=== PATIENT | male | born 1940 ===

== ENCOUNTER 2016-08-14 08:11 | Emergency (ER) | payer MEDICARE, OTHER ==
[2016-08-14 08:17] VITALS: O2SAT 98
--- NOTE | 2016-08-14 09:09 | C.PDOC ---
History Of Present Illness Patient is a 75 y/o male that presents to the ED for evaluation of nasal congestion, ear discomfort, and post-nasal drip symptoms for the last 2 months. Pt reports decreased hearing sense from his left ear, and feels his ears are clogged. Pt reports being seen by PMD with similar complaints, and was prescribed several unknown medications with no relief. Otherwise, denies any chest pain, shortness of breath, fever, chills, or any other associated symptoms at this time. Time Seen by Provider: 08/14/16 08:41 Chief Complaint (Nursing): ENT Problem History Per: Patient History/Exam Limitations: None Onset/Duration Of Symptoms: Days (2 months) Current Symptoms Are (Timing): Still Present Quality (Ear): denies: Pain W/Touch, Redness, Swelling, Discharge, Foreign Body Past Medical History Reviewed: Historical Data, Nursing Documentation, Vital Signs Vital Signs: Last Vital Signs Temp 97.9 F 08/14/16 09:29 Pulse 68 08/14/16 09:29 Resp 20 08/14/16 09:29 BP 175/83 H 08/14/16 09:29 Pulse Ox 98 08/14/16 09:52 - Medical History PMH: HTN Family History: States: No Known Family Hx - Social History Hx Alcohol Use: No Hx Substance Use: No - Immunization History Hx Tetanus Toxoid Vaccination: No Hx Influenza Vaccination: No Hx Pneumococcal Vaccination: No Review Of Systems Except As Marked, All Systems Reviewed And Found Negative. Constitutional: Negative for: Fever, Chills ENT: Positive for: Ear Pain (discomfort, decreased hearing from left ear), Nose Congestion, Throat Pain. Negative for: Ear Discharge Cardiovascular: Negative for: Chest Pain, Palpitations, Light Headedness Respiratory: Positive for: Cough. Negative for: Shortness of Breath Gastrointestinal: Negative for: Nausea, Vomiting, Abdominal Pain Physical Exam - Physical Exam Appears: Non-toxic, No Acute Distress Skin: Normal Color, Warm, Dry Head: Atraumatic, Normacephalic Eye(s): bilateral: Normal Inspection, EOMI Ear(s): Bilateral: Normal Nose: Normal Oral Mucosa: Moist Throat: Normal, No Erythema, No Exudate, No Drooling Neck: Normal ROM, Supple Chest: Symmetrical, No Tenderness Cardiovascular: Murmur (2/6 systolic murmur) Respiratory: Normal Breath Sounds, No Rales, No Rhonchi, No Wheezing Extremity: Normal ROM Neurological/Psych: Oriented x3, Normal Speech, Normal Cognition ED Course And Treatment O2 Sat by Pulse Oximetry: 98 (on RA) Pulse Ox Interpretation: Normal Disposition - Disposition Referrals: Juan Garcia MD [Staff Provider] - [facility] [Outside] Disposition: HOME/ ROUTINE Disposition Time: 09:07 Condition: GOOD Additional Instructions: Call for an apt with dr Garcia Take all usual meds Prescriptions: Cetirizine HCl [Zyrtec] 1 cap PO DAILY #30 capsule Methylprednisolone [Medrol Dose Pack (21 tabs)] 1 kit PO . DIRECTED #21 packet Instructions: Allergic Rhinitis (ED) Print Language: PERUVIAN - Clinical Impression Clinical Impression: Seasonal allergies - Scribe Statement The provider has reviewed the documentation as recorded by the Scribe Yamilex Choe All medical record entries made by the Scribe were at my direction and personally dictated by me. I have reviewed the chart and agree that the record accurately reflects my personal performance of the history, physical exam, medical decision making, and the department course for this patient. I have also personally directed, reviewed, and agree with the discharge instructions and disposition.
[2016-08-14 09:32] VITALS: BP 175/83; PULSE 68; RESP 20; TEMP 97.9
== END 2016-08-14 09:30 | disposition home or self-care (01) ==
LOC: C.ER 08:11
DX: J30.2 Other seasonal allergic rhinitis (principal)

== ENCOUNTER 2018-01-04 12:34 | Emergency (ER) | payer MEDICARE, OTHER ==
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
[2018-01-04] MEDS ORDERED: Oxycodone/Acetaminophen 5/325 mg Tab PO STA (14:13)
[2018-01-04] MEDS ORDERED: Oxycodone/Acetaminophen 5/325 mg Tab ONE (14:16)
[2018-01-04 16:17] VITALS: BP 145/74; PULSE 54; RESP 16; TEMP 97.5
--- NOTE | 2018-01-04 16:37 | RAD ---
PROCEDURE: Radiographs of the pelvis and bilateral hips HISTORY: fall COMPARISON: None. FINDINGS: BONES: Pelvis: Unremarkable. Right hip:Unremarkable. Left hip:Unremarkable. JOINTS: Right hip: Joint space narrowing. Left hip: Joint space narrowing. Sacroiliac Joints: Narrowed and sclerotic. Pubic symphysis: Narrowed and sclerotic. SOFT TISSUES: Normal. OTHER FINDINGS: None. IMPRESSION: No demonstrated fracture or dislocation. Bilateral hip degenerative changes.
--- NOTE | 2018-01-04 16:38 | RAD ---
Date of service: 01/04/2018 PROCEDURE: Right Knee Radiographs. HISTORY: knee pain COMPARISON: None. FINDINGS: BONES: No acute fracture. JOINTS: Mild tricompartmental narrowing, worst in the medial tibial femoral compartment. JOINT EFFUSION: None. OTHER FINDINGS: Quadriceps tendon enthesophyte. IMPRESSION: No demonstrated fracture or dislocation. Mild degenerative changes..
[2018-01-04 16:42] VITALS: O2SAT 98
== END 2018-01-04 16:29 | disposition home or self-care (01) ==
LOC: C.ER 12:34
DX: G89.29 Other chronic pain (principal); M54.5 Low back pain; M25.561 Pain in right knee; I10 Essential (primary) hypertension
CPT/HCPCS: 73521; 73562; 96372; 99285; J1885

== ENCOUNTER 2018-02-15 06:08 | Day surgery (SDC) | payer MEDICARE, OTHER ==
[2018-02-08 12:26] VITALS: BMI 28.1
[2018-02-15] MEDS ORDERED: EPINEPHrine 1:1000 Nasal Sol(30mL) ONE (07:01)
[2018-02-15] MEDS ORDERED: Lidocaine/Epinephrine 1% 1:100000 10 ML IJ ONE (07:01)
[2018-02-15] MEDS ORDERED: ceFAZolin IV 1 gm in Dextrose 2 GM/100 ML BAG IVPB ONE (07:01)
[2018-02-15] MEDS ORDERED: Propofol 10 mg/ml Inj (20 ML) ONE (07:22)
[2018-02-15] MEDS ORDERED: Succinylcholine Chloride 20 mg/ml Syr (5 ml) IV ONE (07:23)
[2018-02-15] MEDS ORDERED: Phenylephrine 10 mg/ml Inj ONE (07:23)
[2018-02-15] MEDS ORDERED: Lidocaine 4% (Laryng-O-Jet) Kit MM ONE (08:03)
[2018-02-15] MEDS ORDERED: ePHEDrine 50 mg/ml Inj ONE (08:05)
[2018-02-15] MEDS ORDERED: Rocuronium 10 mg/ml (5 ml) ONE (08:06)
[2018-02-15] MEDS ORDERED: Esmolol 100 mg/10ml Inj IV ONE (08:33)
[2018-02-15] MEDS ORDERED: Neostigmine Methylsulfate 3mg/3ml Syringe IV ONE (08:41)
[2018-02-15] MEDS ORDERED: Naloxone 0.4 mg/ml Inj (Adult) ONE (09:18)
[2018-02-15] MEDS ORDERED: Acetaminophen-Codeine 300/30 mg Tab PO PRN (09:18)
[2018-02-15] MEDS ORDERED: Dextrose 5%/0.45% NS 1,000 ML IV SCH (09:30)
[2018-02-15 12:12] VITALS: O2SAT 97
[2018-02-15 12:21] VITALS: BP 135/63; PULSE 68; RESP 18; TEMP 97.5
--- NOTE | 2018-02-15 13:24 | OP ---
PROCEDURE DATE: 02/15/2018 PREOPERATIVE DIAGNOSIS: Sinusitis, large turbinates, deviated septum, right chronic otitis media. POSTOPERATIVE DIAGNOSIS Sinusitis, large turbinates, deviated septum, right chronic otitis media. PROCEDURE: Endoscopic bilateral ethmoidectomy, endoscopic bilateral maxillary antrostomy, endoscopic left sphenoidotomy, endoscopic bilateral inferior turbinate reduction, right myringotomy with tubes. FINDINGS: Left sphenoid antrum stenosed, bilateral maxillary antrum stenosed, sinusitis changes noted in the ethmoid sinuses. The sphenoid antrum stenosed. Deviated septum, large inferior turbinates. Fluid noted behind the right TM. PROCEDURE: The patient was brought into room, placed in supine position. Anesthesia initiated through an ET tube. The patient was draped in usual manner. The right ear was brought to view using operative microscope and ear speculum. Radial incision was made in the anterior-inferior quadrant of the right eardrum. Fluid was noted behind the TM and suctioned out. Tube was placed. Floxin was placed. Next, adrenaline-soaked pledgets were inserted into nasal cavity, remained there for 5 minutes and removed. The septum was injected with lidocaine with epinephrine after the patient was draped in usual manner. A Migel incision was made on the left and mucoperichondrial flap was raised. A vertical incision was made in the cartilage leaving the 0.5 cm anterior superior strut and a mucoperichondrial flap was raised on the other side. Deviated portion of the bone and cartilage were removed using chisel and forceps. Quilting suture was used to suture the two flaps together and close the Repton incision. A zero-degree scope was inserted into the nasal cavity. The inferior turbinates was noted to be enlarged and reduced in size using scissors going from inferior to superior, anterior posterior direction on both sides, first on the left then on the right. Next suction cautery was used to control bleeding on both sides. Navigation was set up and used in order to ensure that the skull base and orbit were not entered. The middle turbinate was injected on both sides with lidocaine with epinephrine. Attention was turned to left and the turbinate was medialized. The uncinate process was medialized and removed. The ethmoid bulla was entered using a debrider inferomedially going posteriorly to the basal lamella anterior and superiorly until the ethmoid bulla was removed. The basal lamella was entered. Posterior ethmoid cells were entered and opened. The skull base was identified and followed anteriorly all the way to the area of anterior ethmoid air cells. Curved suction hooked up to navigation was used to locate the maxillary antrum which was noted to be stenosed and opened using forceps. Next, the sphenoid antrum was located and opened using forceps. Bleeding was controlled using suction cautery and adrenaline-soaked pledgets. Attention was turned to the other side. The middle turbinate was medialized. The uncinate process was medialized and removed. The ethmoid bulla was entered inferomedially going posteriorly to the basal lamella anterior and superiorly until the ethmoid bulla was removed. The basal lamella was entered. Posterior ethmoid cells were entered and opened. The skull base was identified and followed anteriorly all the way to the area of the anterior ethmoid air cells. Curved suction hooked up to navigation was used to locate the maxillary antrum which was noted to be stenosed and opened using forceps. Bleeding was controlled using adrenaline-soaked pledgets and suction cautery. Splints were placed. Stents were placed. The patient was taken off anesthesia and taken to recovery room in stable manner. Juan Garcia MD
== END 2018-02-15 12:00 | disposition home or self-care (01) ==
LOC: C.SDS 06:08
PROVIDERS: ATTEND Otolaryngology
DX: J34.3 Hypertrophy of nasal turbinates (principal); J32.0 Chronic maxillary sinusitis; J32.2 Chronic ethmoidal sinusitis; J34.2 Deviated nasal septum; H66.91 Otitis media, unspecified, right ear; I10 Essential (primary) hypertension; E11.9 Type 2 diabetes mellitus without complications; I25.10 Atherosclerotic heart disease of native coronary artery without angina pectoris; J32.3 Chronic sphenoidal sinusitis
CPT/HCPCS: 30130; 30520; 31020; 31050; 31200; 69436; 82948; 88304; 88311; J0690; J2001; J2270; J2310; J2370; J2405; J2704; J2710; J2765; J3010

== ENCOUNTER 2018-02-16 03:25 | Emergency (ER) | payer MEDICARE, OTHER ==
[2018-02-16 03:25] VITALS: BMI 28.1
--- NOTE | 2018-02-16 03:39 | C.PDOC ---
History Of Present Illness Patient presents to the ER with epistaxis. Patient had sinus surgery yesterday. Denies fever, chills, nausea, or vomiting. Time Seen by Provider: 02/16/18 03:39 Chief Complaint (Nursing): ENT Problem History Per: Patient History/Exam Limitations: None Onset/Duration Of Symptoms: Hrs Current Symptoms Are (Timing): Still Present Severity: Mild Pain Scale Rating Of: 3 Anticoagulant/Antiplatlet Use?: No Past Medical History Reviewed: Historical Data, Nursing Documentation, Vital Signs Vital Signs: Last Vital Signs Temp 98.9 F 02/16/18 03:34 Pulse 101 H 02/16/18 03:34 Resp 18 02/16/18 03:34 BP 195/90 H 02/16/18 03:34 Pulse Ox 98 02/16/18 03:34 - Medical History PMH: Back Problems, HTN, Hypercholesterolemia Denies: Chronic Kidney Disease Surgical History: Endoscopy Family History: States: No Known Family Hx - Social History Hx Alcohol Use: No Hx Substance Use: No - Immunization History Hx Tetanus Toxoid Vaccination: No Hx Influenza Vaccination: Yes Hx Pneumococcal Vaccination: No Review Of Systems Constitutional: Negative for: Fever, Chills ENT: Positive for: Other (Epistaxis) Cardiovascular: Negative for: Chest Pain, Palpitations Respiratory: Negative for: Cough, Shortness of Breath Gastrointestinal: Negative for: Nausea, Vomiting Psych: Positive for: Anxiety Physical Exam - Physical Exam Appears: Non-toxic, Other (very anxious) Skin: Warm, Dry Nose: Other (Clots in bilateral nares) Oral Mucosa: Moist Throat: No Erythema, No Exudate, No Other (Clots) Neck: Trachea Midline, Supple Extremity: Normal ROM Neurological/Psych: Oriented x3 Gait: Steady ED Course And Treatment O2 Sat by Pulse Oximetry: 98 (Room air) Pulse Ox Interpretation: Normal Disposition Counseled Patient/Family Regarding: Studies Performed, Diagnosis - Disposition Referrals: Juan Garcia MD [Staff Provider] - Disposition: HOME/ ROUTINE Disposition Time: 03:39 Condition: FAIR Additional Instructions: Please follow up with dr Garcia Instructions: Nosebleeds (DC) Forms: [employer] ([place]) - Clinical Impression Clinical Impression: Bleeding nose - Scribe Statement The provider has reviewed the documentation as recorded by the Scribe Azael Hill All medical record entries made by the Scribe were at my direction and personally dictated by me. I have reviewed the chart and agree that the record accurately reflects my personal performance of the history, physical exam, medical decision making, and the department course for this patient. I have also personally directed, reviewed, and agree with the discharge instructions and dis position.
[2018-02-16 04:56] VITALS: BP 150/79; PULSE 80; RESP 16; TEMP 98.6; O2SAT 99
== END 2018-02-16 04:58 | disposition home or self-care (01) ==
LOC: C.ER 03:25
DX: R04.0 Epistaxis (principal)